=== PATIENT | female | born 1995 | race American Indian/Alaskan Native ===

== ENCOUNTER 2018-11-01 16:54 | Emergency (ER) | payer OTHER ==
--- NOTE | 2018-11-01 17:27 | Emergency Department Report ---
Chief Complaint: Eye Problems Stated Complaint: (L) EYE WANT OPEN/PAIN Time Seen by Provider: 11/01/18 17:22 - HPI History of Present Illness: This is a 22 y.o. F. that presents to the ER with left eye pain. Patient [place] symptoms started [place]. Reports redness, discharge, sensation of foreign object. Patient states she was wearing contacts while riding banana boat and experienced blurry vision every since. LMP 10/06/18 - Exam Vital Signs: Vital Signs 11/01/18 17:23 Temperature 98.3 F Pulse Rate 95 H Respiratory 16 Rate Blood Pressure 106/59 [Right] O2 Sat by Pulse 100 Oximetry MSE screening note: Focused history and physical exam performed. Due to findings the following was ordered: Acuity test ED Disposition for MSE Condition: Stable
--- NOTE | 2018-11-01 20:55 | Emergency Department Report ---
[facility] Chief Complaint: Eye Problems Stated Complaint: (L) EYE WANT OPEN/PAIN Time Seen by Provider: 11/01/18 17:22 Duration: 2 Days Side: Left Severity: moderate Symptoms: Yes Eye Itching, Yes Eye Redness, Yes Eye Pain, Yes Mucous Drainage, Yes Purulent Drainage, Yes Blurred Vision, Yes H/O Allergic Rhinitis, Yes Contact Lens Use, No Preceding URI, No Trauma, No Fever, No Headache Other History: This is a 22 y.o. F. that presents to the ER with left eye pain. Patient states [place] was [place] the [place] when symptoms started yesterday. Reports redness, discharge, sensation of foreign object. Patient states she was wearing contacts while [place] and experienced blurry vision every since. LMP 10/06/18 ED Review of Systems ROS: Stated complaint: (L) EYE WANT OPEN/PAIN Other details as noted in HPI Constitutional: denies: chills, fever Eyes: eye pain, eye discharge, vision change ENT: denies: ear pain, throat pain, dental pain, hearing loss, congestion Respiratory: denies: cough, shortness of breath, wheezing Cardiovascular: denies: chest pain, palpitations Endocrine: no symptoms reported Gastrointestinal: denies: abdominal pain, nausea, diarrhea Genitourinary: denies: urgency, dysuria, discharge Musculoskeletal: denies: back pain, joint swelling, arthralgia Skin: denies: rash, lesions Neurological: denies: headache, weakness, paresthesias Psychiatric: denies: anxiety, depression Hematological/Lymphatic: denies: easy bleeding, easy bruising ED Past Medical Hx - Past Medical History Previous Medical History?: No - Surgical History Past Surgical History?: No - Social History Smoking Status: Never Smoker Substance Use Type: Alcohol - Medications Home Medications: Home Medications Medication Instructions Recorded Confirmed Last Taken Type Cetirizine HCl [Zyrtec 10mg tab] 10 mg PO DAILY #30 tablet 11/01/18 Unknown Rx Ibuprofen [Motrin 800 MG tab] 800 mg PO Q8HR PRN #30 tablet 11/01/18 Unknown Rx Polymyxin B Sulf/Trimethoprim 2 drops OP Q4H 10 Days #10 ml 11/01/18 Unknown Rx [Polytrim Eye Drops] [facility] Exam - Exam General: Vital signs noted. No distress. Alert and acting appropriately. Eye Exam: Left Injection, Left Mucous Discharge, Left Purulent Discharge, Left Photophobia (no eye pain , photophobia is noted , ), Both EOMI (visual acuity 20 over night 5 minutes male who is/30 bilat without correct), Neither Chemosis, Neither Abnormal Pupil, Neither Eye Foreign Body, Neither Lid Foreign Body, Neither Corneal Edema HEENT: No Nasal Congestion, No Pharyngeal Erythema Remainder of HEENT: Normal Lungs: Yes Clear Lung Sounds, Yes Good Air Exchange, No Wheezes, No Stridor, No Cough, No Nasal Flaring, No Retractions, No Use of Accessory Muscles ED Course Vital Signs 11/01/18 17:23 Temperature 98.3 F Pulse Rate 95 H Respiratory 16 Rate Blood Pressure 106/59 [Right] O2 Sat by Pulse 100 Oximetry ED Medical Decision Making - Medical Decision Making this is straight forward conjunctivitis contact lense in out no visual changes purulent drainage, conjunctivae injection there no eye pain outside of photophobia , plan: polytrim , zyrtec, ibuprofen follow up with ophthalmology in 1-2 days pt verbalized agreement and understanding of discharge plan. Critical care attestation.: If time is entered above; I have spent that time in minutes in the direct care of this critically ill patient, excluding procedure time. ED Disposition Clinical Impression: Conjunctivitis Qualifiers: Conjunctivitis type: acute Acute conjunctivitis type: bacterial Laterality: left Qualified Code(s): H10.32 - Unspecified acute conjunctivitis, left eye Disposition: - TO HOME OR SELFCARE Is pt being admited?: No Does the pt Need Aspirin: No Condition: Stable Instructions: Conjunctivitis (ED) Prescriptions: Ibuprofen [Motrin 800 MG tab] 800 mg PO Q8HR PRN #30 tablet PRN Reason: pain Polymyxin B Sulf/Trimethoprim [Polytrim Eye Drops] 2 drops OP Q4H 10 Days #10 ml Cetirizine HCl [Zyrtec 10mg tab] 10 mg PO DAILY #30 tablet Referrals: BONIFACIO NG MD [Primary Care Provider] - 3-5 Days Forms: Work/School Release Form(ED) Time of Disposition: 21:07
[2018-11-01] MEDS ORDERED: IBUPROFEN PO ONE (21:06)
[2018-11-01 21:23] VITALS: BP 105/66
== END 2018-11-01 21:22 | disposition home or self-care (01) ==
LOC: ED 16:54
DX: H10.9 Unspecified conjunctivitis (principal)